=== PATIENT | female | born 1975 | race Caucasian/White ===

== ENCOUNTER 2017-08-09 11:36 | Emergency (ER) | payer OTHER ==
--- NOTE | 2017-08-09 12:08 | ED PDOC ---
Arrival/HPI - General Historian: Patient - History of Present Illness Time/Duration: 1-3 hours Symptom Onset: Sudden Symptom Course: Intermittent Quality: Dullness - General Time Seen by Provider: 08/09/17 11:44 - History of Present Illness Narrative History of Present Illness (Text): This patient is a 41 year old female with PMHx of GERD, Bronchitis, HTN, and Diabetes who presents complaining of non-radiating dull/nagging chest pain that started this morning. Patient stated that this morning while walking to the bathroom she started to feel chest pain. Patient states the chest pain is intermittent and comes at rest and exertion. She cannot identify any relieving or exacerbating factors. She has not tried any modalities to control the pain. She did not take her morning daily medications. Patient denies any palpitations , SOB, nausea or vomiting ROS POSITIVES: Chest pain NEGATIVES: Fevers, chills, headache, lightheadedness, palpitations, SOB, abdominal pain, n/v/d, constipation, or urinary symptoms PMHx: GERD, Bronchitis, HTN, and Diabetes PSHx: None Allergies: NKDA Social Hx: 1/2 a pack a day smoker for about 26 years. Drinks Alcohol socially, and denies any illicit drug use FamHx: Denies Meds: Metformin 1000 Daily, Amlodipine 5 Daily, Gabapentin 90 TID, Escitalopram 100mg Dialy PMD: Dr. Salgado 08/09/17 12:08 (Zoya Roger) Past Medical History - Provider Review Nursing Documentation Reviewed: Yes - Past History Past History: No Previous - Tetanus Immunization Tetanus Immunization: Unknown - Psychiatric Hx Depression: No Hx Emotional Abuse: No Hx Physical Abuse: No - Suicidal Assessment Feels Threatened In Home Enviroment: No Family/Social History - Physician Review Nursing Documentation Reviewed: Yes Family/Social History: No Known Family HX Allergies/Home Meds Allergies/Adverse Reactions: Allergies No Known Allergies Allergy (Verified 05/12/13 18:05) Review of Systems - Physician Review All systems were reviewed & negative as marked: Yes (As per HPI) - Review of Systems Constitutional: Normal. absent: Fevers Respiratory: Normal. absent: SOB Cardiovascular: Chest Pain. absent: Palpitations Gastrointestinal: Normal. absent: Abdominal Pain Physical Exam Vital Signs Reviewed: Yes Temperature: Afebrile Blood Pressure: Normal Pulse: Regular Respiratory Rate: Normal Appearance: Positive for: Well-Appearing, Non-Toxic, Comfortable Pain Distress: Mild Mental Status: Positive for: Alert and Oriented X 3 - Systems Exam Head: Present: Atraumatic, Normocephalic Extroacular Muscles: Present: EOMI Conjunctiva: Present: Normal Mouth: Present: Moist Mucous Membranes Nose (External): Present: Atraumatic Neck: No: JVD, Lymphadenopathy, Bruit Respiratory/Chest: Present: Clear to Auscultation, Good Air Exchange. No: Respiratory Distress, Accessory Muscle Use, Wheezes, Rales, Rhonchi, Tender to Palpation Cardiovascular: Present: Regular Rate and Rhythm, Normal S1, S2. No: Murmurs Abdomen: Present: Normal Bowel Sounds. No: Tenderness, Distention, Rebound, Guarding Upper Extremity: Present: Capillary Refill < 2s Lower Extremity: No: Edema Neurological: Present: GCS=15, Speech Normal Skin: Present: Warm, Dry, Normal Color Psychiatric: Present: Alert, Oriented x 3 Vital Signs Temp Pulse Resp BP Pulse Ox 08/09/17 15:35 98.2 F 86 18 127/80 97 08/09/17 11:37 98 F 85 18 136/82 98 Medical Decision Making ED Course and Treatment: 08/09/17 15:27 Patient declines an observation in Emergency room. Heart score is low. (Rodrigo Carlos) 41 year old female with PMHx of GERD, bronchitis, HTN, and Diabetes presents with Chest Pain --CBC/CMP --PT/PTT --Mg --BNP --Cardiac Enzymes --UA --EKG: NSR with no acute ST/T wave changes ---ASA 81 --CXR --Reassess and Disposition 08/09/17 12:24 (Zoya Roger) - Lab Interpretations Lab Results: 08/09/17 12:50 08/09/17 12:50 Lab Results 08/09/17 13:30: Urine Color Yellow, Urine Appearance Clear, Urine pH 6.5, Ur Specific [place] 1.010, Urine Protein Negative, Urine Glucose (UA) Negative, Urine Ketones Negative, Urine Blood Moderate H, Urine Nitrate Negative, Urine Bilirubin Negative, Urine Urobilinogen 0.2, Ur Leukocyte Esterase Trace H, Urine RBC 10 - 15, Urine WBC 2 - 5, Ur Epithelial Cells 6 - 8, Urine Bacteria Many, Urine HCG, Qual Negative 08/09/17 12:50: Sodium 139, Potassium 4.0, Chloride 104, Carbon Dioxide 28, Anion Gap 12, BUN 10, Creatinine 0.8, Est GFR ( Amer) > 60, Est GFR (Non- Af Amer) > 60, Random Glucose 133 H, Calcium 9.9, Magnesium 1.6 L, Total Bilirubin 0.6, AST 20, ALT 32, Alkaline Phosphatase 82, Lactate Dehydrogenase 371, Total Creatine Kinase 157, Troponin I < 0.01, Total Protein 7.5, Albumin 4.1, Globulin 3.3, Albumin/Globulin Ratio 1.2 08/09/17 12:50: WBC 8.3, RBC 4.51, Hgb 13.7, Hct 40.6, MCV 90.0, MCH 30.4, MCHC 33.7, RDW 13.4, Plt Count 305, MPV 10.2, Gran % 57.2, Lymph % (Auto) 33.1, [place] % (Auto) 5.9, Eos % (Auto) 3.6, Baso % (Auto) 0.2, Gran # 4.75, Lymph # 2.8, [place] # 0.5, Eos # 0.3, Baso # 0.02 - RAD Interpretation Radiology Orders: 08/09/17 12:19 CHEST PORTABLE [RAD] Stat - Medication Orders Current Medication Orders: Discontinued Medications Aspirin (Aspirin) 325 mg PO STAT STA Stop: 08/09/17 12:24 Last Admin: 08/09/17 12:44 Dose: 325 mg Disposition/Present on Arrival - Present on Arrival Any Indicators Present on Arrival: No History of DVT/PE: No History of Uncontrolled Diabetes: No Urinary Catheter: No History Surgical Site Infection Following: None - Disposition Have Diagnosis and Disposition been Completed?: Yes Disposition Time: 04:00 - Disposition Diagnosis: Chest pain Disposition: HOME/ ROUTINE Condition: STABLE Discharge Instructions (ExitCare): Chest Pain (ED) Additional Instructions: follow up with your doctor. return to er with worsening symptoms or concerns. Referrals: Rickey Ruggiero MD [Staff Provider] - Follow up with primary Forms: [employer] (Kiswahili)
[2017-08-09 12:15] VITALS: BMI 25.8
[2017-08-09 12:19] VITALS: RESP 18
[2017-08-09 13:05] LABS: BASO # 0.02 K/mm3 (0.0-2.0); BASO % 0.2 % (0.0-3.0); EOS # 0.3 (0.0-0.7); EOS % 3.6 % (1.5-5.0); GRAN # 4.75 (1.4-6.5); GRAN % 57.2 % (50.0-68.0); HEMATOCRIT 40.6 % (36.0-48.0); LYMPH # 2.8 (1.2-3.4); LYMPH % 33.1 % (22.0-35.0); MEAN CORPUSCULAR HEMOGLOBIN 30.4 pg (25.0-35.0); MEAN CORPUSCULAR HGB CONC 33.7 g/dl (31.0-37.0); MEAN PLATELET VOLUME 10.2 fl (7.0-11.0); MONO # 0.5 (0.1-0.6); MONO % 5.9 % (1.0-6.0); RED CELL DISTRIBUTION WIDTH 13.4 % (11.5-14.5); WHITE BLOOD COUNT 8.3 10^3/ul (4.5-11.0)
[2017-08-09 13:21] LABS: ALB/GLOB RATIO 1.2 (1.1-1.8); ALKALINE PHOSPHATASE 82 U/L (38-126); ALT/SGPT 32 U/L (7-56); AST/SGOT 20 U/L (14-36); BILIRUBIN,TOTAL 0.6 mg/dL (0.2-1.3); BLOOD UREA NITROGEN 10 mg/dL (7-21); CALCIUM 9.9 mg/dL (8.4-10.5); CARBON DIOXIDE 28 mmol/L (21-33); CHLORIDE 104 mmol/L (98-107); GFR AFRICAN-AMERICAN > 60; GLUCOSE,RANDOM 133 mg/dL (70-110); MAGNESIUM 1.6 mg/dL (1.7-2.2); SODIUM 139 mmol/L (132-148); TOTAL PROTEIN 7.5 g/dL (5.8-8.3)
[2017-08-09 13:32] LABS: TROPONIN I < 0.01 ng/mL
[2017-08-09 14:56] LABS: PH,URINE 6.5 (4.7-8.0); URINE BILIRUBIN NEGATIVE (NEGATIVE); URINE BLOOD MODERATE (NEGATIVE); URINE GLUCOSE (UA) NEGATIVE (NEGATIVE); URINE KETONE NEGATIVE (NEGATIVE); URINE LEUKOCYTE ESTERASE TRACE Leu/uL (NEGATIVE); URINE PROTEIN NEGATIVE mg/dL (<30 mg/dL); URINE UROBILINOGEN 0.2 E.U./dL (<1 E.U./dL)
[2017-08-09 15:02] LABS: URINE APPEARANCE CLEAR (CLEAR); URINE COLOR YELLOW (YELLOW)
[2017-08-09 15:05] LABS: URINE BACTERIA MANY (NEG)
--- NOTE | 2017-08-09 15:08 | RAD ---
HISTORY: chest pain COMPARISON: No prior. FINDINGS: LUNGS: No active pulmonary disease. PLEURA: No significant pleural effusion identified, no pneumothorax apparent. CARDIOVASCULAR: Normal. OSSEOUS STRUCTURES: No significant abnormalities. VISUALIZED UPPER ABDOMEN: Normal. OTHER FINDINGS: None. IMPRESSION: No active disease.
[2017-08-09 15:36] VITALS: BP 127/80; PULSE 86; TEMP 98.2; O2SAT 97
--- NOTE | 2017-08-09 16:44 | CARD ---
APPROVED REPORT EKG Measurement Heart [id number] <Conclusion> Normal sinus rhythm Normal ECG
== END 2017-08-09 15:38 | disposition home or self-care (01) ==
LOC: ED 11:36
DX: R07.9 Chest pain, unspecified (principal); I10 Essential (primary) hypertension; E11.9 Type 2 diabetes mellitus without complications; K21.9 Gastro-esophageal reflux disease without esophagitis